=== PATIENT | male | born 1975 | race Caucasian/White ===

== ENCOUNTER 2023-09-03 11:51 | Emergency (ER) | payer BC, SELFPAY ==
[2023-09-03] VITALS (12 sets, daily range): BP systolic 116–173; BP diastolic 84–114; BMI 31.3
--- NOTE | 2023-09-03 12:07 | ED.GENMED ---
History of Present Illness
<Rosas Sosa PA-C - Last Filed: 09/03/23 15:16>
General
Chief Complaint: Musculo-Skeletal Complaint
Time Seen by Provider: 09/03/23 12:00
Travel History
Have you had any contact with someone who has COVID-19?: No
Do you have any symptoms of coronavirus? Fever > 100 degrees, chills, cough, shortness of breath, sore throat, loss of taste or smell, muscle aches, or headache?: No
History of Present Illness
History of Present Illness:
48-year-old male presents the emergency department for evaluation of right wrist injury after falling off a ladder. There is a visible deformity to the wrist. He denies any distal numbness. He denies any head neck or back injury, does not take
anticoagulants
Review of Systems
<Rosas Sosa PA-C - Last Filed: 09/03/23 15:16>
Review of Systems
Allergies reviewed?: Yes
All Other Systems: ROS reviewed and negative except as documented in HPI and ROS
Phy Exam
<ELPIDIO Trinidad Last Filed: 09/03/23 15:16>
Physical Exam
Physical Exam:
GEN: Well appearing, NAD, WDWN
HEENT: Oral mucosa moist, no scleral icterus
Cardiac: Regular rate
Lung: No respiratory distress, no tachypnea
MSK: N obvious deformity of the right wrist, patient has minimal range of motion of the digits and sensation is intact globally. No midline cervical, thoracic, and lumbar spine tenderness, no proximal right upper extremity tenderness
Skin: Good color, no pallor or jaundice, no rashes
Neuro: AO x3, moves all extremities freely
Psych: Calm, cooperative
Course
<ELPIDIO Trinidad Last Filed: 09/03/23 15:16>
Orders/Labs/Results
Orders:
Orders
09/03/23 12:06
IV Insert/Care/Rem.- Treatment PRN
HYDROmorphone [Dilaudid] 1 mg .ROUTE .STK-MED ONE
HYDROmorphone [Dilaudid] 1 mg IV NOW STA
CR Elbow - Right Min 3 Views Urgent
Comment:
Reason For Exam: fall injury
CR Wrist - Right Min 3 Views Urgent
Comment:
Reason For Exam: wrist injury
09/03/23 12:47
Fentanyl Citrate/Pf [Sublimaze] 75 mcg IV NOW STA
09/03/23 12:49
Propofol [Diprivan] 40 ml .ROUTE .STK-MED
09/03/23 13:11
Wrist, Right 2 Views CR [CR Wrist - Right Min 2 Views] Stat
Comment: portable
Reason For Exam: wrist reduction
Vital Signs
Initial and Last Documented VS:
Initial Vital Signs
Temp Pulse Resp BP Pulse Ox
98.1 F 100 24 145/113 98
09/03/23 11:55 09/03/23 11:55 09/03/23 11:55 09/03/23 11:55 09/03/23 11:55
Last Documented Vital Signs
Temp Pulse Resp BP Pulse Ox
98.0 F 81 15 134/95 98
09/03/23 12:59 09/03/23 14:15 09/03/23 14:15 09/03/23 14:15 09/03/23 14:15
<Jb Gomez DO - Last Filed: 09/03/23 15:19>
Orders/Labs/Results
Orders:
Orders
09/03/23 12:06
IV Insert/Care/Rem.- Treatment PRN
HYDROmorphone [Dilaudid] 1 mg .ROUTE .STK-MED ONE
HYDROmorphone [Dilaudid] 1 mg IV NOW STA
CR Elbow - Right Min 3 Views Urgent
Comment:
Reason For Exam: fall injury
CR Wrist - Right Min 3 Views Urgent
Comment:
Reason For Exam: wrist injury
09/03/23 12:47
Fentanyl Citrate/Pf [Sublimaze] 75 mcg IV NOW STA
09/03/23 12:49
Propofol [Diprivan] 40 ml .ROUTE .STK-MED
09/03/23 13:11
Wrist, Right 2 Views CR [CR Wrist - Right Min 2 Views] Stat
Comment: portable
Reason For Exam: wrist reduction
Vital Signs
Initial and Last Documented VS:
Initial Vital Signs
Temp Pulse Resp BP Pulse Ox
98.1 F 100 24 145/113 98
09/03/23 11:55 09/03/23 11:55 09/03/23 11:55 09/03/23 11:55 09/03/23 11:55
Last Documented Vital Signs
Temp Pulse Resp BP Pulse Ox
98.0 F 81 15 134/95 98
09/03/23 12:59 09/03/23 14:15 09/03/23 14:15 09/03/23 14:15 09/03/23 14:15
Procedures
<Rosas Sosa PA-C - Last Filed: 09/03/23 15:16>
Splinting/Sling Placement
Right Wrist:
Procedure completed by: Rosas Sosa PA-C
Pre-splint extermity exam: neurovascular intact
Type of splint: sugar-tong
Splint material: fiberglass
Type of sling: sling fitted
Joint/Fracture Reduction
Right Wrist:
Indication for procedure:: Displaced wrist fracture
Procedure completed by: Rosas Sosa PA-C
Consent form signed: Yes
Joint reduced: with anesthesia sedation
Injury was: closed
Further treatement: needs further treatment
Post reduction exam: stable
Capillary Refill: normal
Normal distal neurovascular exam?: Yes
<Jb Gomez DO - Last Filed: 09/03/23 15:19>
Moderate Sedation
ASA Risk Score: Class I
Chart and allergies reviewed: Yes
Consent for anesthesia obtained: Yes
Time out completed (validating right patient & procedure): Yes
Moderate Sedation Start Time(when first medication is given): 13:05
History of difficult intubation: No
Airway free of obstruction: Yes
Patient has a gag reflex: Yes
Patient is able to open mouth: Yes
Patient has no dentures: Yes
Patient has no loose teeth: Yes
Medication administered by Provider during Moderate Sedation: IV Propofol (mg) (150)
Total dose administered: 150
Time drug administered: 13:05
Moderate Sedation Procedure End Time: 13:17
<Rosas Sosa PA-C - Last Filed: 09/03/23 15:16>
MDM/Problems Addressed
MDM/Problems Addressed:
Patient was noted to have a small abrasion to the volar aspect of the ulnar styloid region, I reviewed the clinical pictures as well as the x-ray images with orthopedics and they did not feel that this represented an open fracture given lack of
bleeding which I agree with. The patient underwent conscious sedation with reduction in good anatomic alignment of the right wrist fracture. Splinted with a sugar-tong splint and sling, will follow-up as an outpatient with orthopedics
<Rosas Sosa PA-C - Last Filed: 09/03/23 15:16>
*Critical Care Note
Total Time (30-74mins, 75-104mins- exclusive of procedures): Not Applicable
ED Attending Note
<Rosas Sosa PA-C - Last Filed: 09/03/23 15:16>
-
Portions of this chart may have been created with voice recognition software.� Occasional wrong word or��sound alike� substitutions may have occurred due to the inherent limitations of voice recognition software.
<Jb Gomez, DO - Last Filed: 09/03/23 15:19>
ED Attending Note
Patient seen and examined by attending physician: Yes
I performed the substantive portion of visit, reviewed & personally made and approve the management plan that is documented in note by myself or ZOHREH.: Yes
ED Attending Note:
Displaced distal radius fracture. Reduced in emergency department. Good cap refill. Good neurovascular exam. Case was discussed with orthopedics by PA who agrees with outpatient management and follow-up
Discharge Plan
Departure
Patient Disposition: Home (Routine Discharge)
Date of Disposition: 09/03/23
Time of Disposition: 14:03
Patient with high blood pressure during this ER visit?: No
Discharge Problem:
Displaced fracture of distal end of right radius
Instructions: Wrist Fracture (DC)
Prescriptions:
New
oxycodone-acetaminophen [Percocet] 5-325 mg tablet
1 tab PO Q6HPRN PRN (Reason: pain) Qty: 8 0RF
Referrals:
Shubham Resendez MD [Active] -
Serena Barker MD [Family Provider] -
Interventions
Interventions:
*Risk Screen - Suicide Last Done: 09/03/23 12:51
*General Assessment Last Done: 09/03/23 12:51
*Neglect/Abuse Screening Last Done: 09/03/23 12:51
ED- Fall Risk Assessment Last Done: 09/03/23 14:24
*ED COVID-19 Vaccine History Last Done: 09/03/23 12:51
*Nursing Disposition Last Done: 09/03/23 14:24
ED-Musculoskeletal Assessment Last Done: 09/03/23 12:50
Discharge Date and Time
Discharge Date/Time: 09/03/23 14:25
Print Language: MAORI
[2023-09-03] MEDS: DILAUDID 1 MG IV (12:11)
[2023-09-03] MEDS: SUBLIMAZE 75 MCG IV (12:52)
== END 2023-09-03 14:25 | disposition home or self-care (01) ==
LOC: EMR 11:51
PROVIDERS: EMERGENCY PHYSICIAN Emergency Medicine; FAMILY PHYSICIAN Internal Medicine
DX: S52.611A Displaced fracture of right ulna styloid process, initial encounter for closed fracture (principal); S60.811A Abrasion of right wrist, initial encounter; W11.XXXD Fall on and from ladder, subsequent encounter
CPT/HCPCS: 25605; 99285; 99152; 96374; 96375; 73080; 73100; 73110